=== PATIENT | female | born 1965 | race Caucasian/White ===

== ENCOUNTER 2019-08-09 15:22 | Emergency (ER) | payer OTHER ==
[2019-08-09] MEDS ORDERED: ONDANSETRON 4 MG/2 ML VIAL ONE (15:51)
[2019-08-09] MEDS ORDERED: FENTANYL CITR 100 MCG/2 ML ONE ×2 (15:51→16:40)
[2019-08-09] MEDS ORDERED: NA CHLORIDE 0.9% 1,000 ML ONE (15:51)
[2019-08-09 15:59] LABS: Protime INR 0.98
[2019-08-09 16:00] LABS: Absolute Lymphocytes (CBC) 3.9 K/uL (0.7-4.9); Basophils % 1.1 % (0-1.3); Hematocrit 39.1 % (36.0-45.0); Lymphocytes % 37.7 % (15.3-44.8); MPV 8.1 fL (7.6-11.3); RBC Red Blood Cell Count 4.38 M/uL (3.86-4.86)
[2019-08-09 16:13] LABS: Albumin 3.6 g/dL (3.4-5.0); Bilirubin Direct 0.1 mg/dL (0-0.2); Bilirubin Total 0.3 mg/dL (0.2-1.0); Potassium 3.3 mmol/L (3.5-5.1); Protein, Total 6.9 g/dL (6.4-8.2)
[2019-08-09 16:24] LABS: Troponin (Emerg Dept Use Only) 0.03 ng/mL (0.0-0.045)
[2019-08-09] MEDS ORDERED: LORazepam 2 MG/ML VIAL ONE (17:02)
[2019-08-09 17:12] LABS: Urine Blood NEGATIVE (NEG); Urine Glucose NEGATIVE (NEG); Urine Protein NEGATIVE (NEG); Urine Specific Gravity 1.005 (1.005-1.030)
--- NOTE | 2019-08-09 17:52 | RAD REPORT ---
EXAM DESCRIPTION: CT - Angio Aorta For Dissection - 08/09/2019 5:32 pm CLINICAL HISTORY: . Chest and abd pain COMPARISON: None TECHNIQUE: Computed tomography angiography of the chest, abdomen pelvis were obtained. 100 cc Isovue 370 was administered intravenously. Coronal and sagittal reconstruction were performed. MIP 3D reconstruction was performed All CT scans are performed using dose optimization technique as appropriate and may include automated exposure control or mA/KV adjustment according to patient size. FINDINGS: An aortic dissection is not seen. An aortic aneurysm is not displayed. The celiac, SMA and SANJIV are patent . The proximal left renal artery is patent. Most of the remainder of the left main renal artery is unop acified A lung consolidation is not present. A pericardial effusion is not seen. A pleural effusion is not n oted. Fatty liver Spleen, adrenals and pancreas appear unremarkable. Marked left renal cortical thinning. Left kidney is small. Nonobstructing left renal calculus is pres ent. Borderline mild right hydronephrosis. No genitourinary calculus. The appendix is normal. There no evidence diverticulitis. No ascites is noted. Spondylosis L5-S1 IMPRESSION: Negative for an aortic dissection. 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
--- NOTE | 2019-08-09 17:52 | RAD REPORT ---
EXAM DESCRIPTION: Kiera Single View08/09/2019 4:18 pm CLINICAL HISTORY: abd pain COMPARISON: 2009 FINDINGS: The lungs appear clear of acute infiltrate. The heart is normal size IMPRESSION: No acute abnormalities displayed
--- NOTE | 2019-08-09 18:25 | ER ---
Nurse's Notes [facility] Name: Blanca King Age: 54 yrs Sex: Female : 1965 Arrival Date: 08/09/2019 Time: 15:26 Bed 7 Private MD: Diagnosis: Upper abdominal pain, unspecified Presentation: 08/09 15:26 Presenting complaint: EMS states: sent here from [place], [place] for aa5 acute abdominal pain. Pt reports LUQ pain that began today at 1100. Pt reports taking hydrocodone prior to going to clinic today. Pt reports nausea, denies vomiting. 15:26 Transition of care: patient was not received from another setting of care. Onset of aa5 symptoms was August 09, 2019. Risk Assessment: Do you want to hurt yourself or someone else? Patient reports no desire to harm self or others. Initial Sepsis Screen: Does the patient meet any 2 criteria? No. Patient's initial sepsis screen is negative. Does the patient have a suspected source of infection? No. Patient's initial sepsis screen is negative. Care prior to arrival: IV initiated. 22 GA, in the right antecubital area. 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 - Hysterectomy aa5 Historical: - Allergies: 15:28 Ambien; aa5 15:28 Lisinopril; aa5 15:28 Lunesta; aa5 15:28 PENICILLINS; aa5 15:28 Sulfa (Sulfonamide Antibiotics); aa5 15:28 Ultram; aa5 15:28 Wellbutrin; aa5 15:28 Zyban; aa5 15:28 Latex, Natural Rubber; aa5 15:28 Losartan; aa5 - Home Meds: 15:35 hydrocodone-acetaminophen 10-325 mg Oral tab every 4 hours for Pain [Active]; aa5 amlodipine 10 mg tab 1 tab once daily [Active]; carvedilol 12.5 mg oral tab 2 times per day [Active]; citalopram 40 mg tab once daily [Active]; clonidine HCl 0.3 mg Oral tab daily [Active]; clopidogrel 75 mg oral tab 1 tab once daily [Active]; levothyroxine 88 mcg tab once daily [Active]; lorazepam 1 mg Oral tab 3 times per day [Active]; folic acid 400 mcg Oral tab once daily [Active]; metformin 500 mg Oral tab 2 times per day [Active]; mirtazapine 45 mg Oral tab once daily [Active]; montelukast 10 mg oral tab 1 tab once daily [Active]; Nitrostat 0.4 mg SL subl [Active]; omeprazole 40 mg Oral cpDR once daily [Active]; ondansetron HCl 4 mg Oral tab every 6 hrs [Active]; potassium chloride 20 mEq Oral TbTQ 1 tab once daily [Active]; rosuvastatin 20 mg oral tab once daily [Active]; Symbicort 80-4.5 mcg/actuation inhalation HFAA 2 puffs 2 times per day [Active]; tizanidine 4 mg oral tab every 8 hours [Active]; valacyclovir 500 mg Oral tab once daily [Active]; Zetia 10 mg Oral tab 1 tab once daily [Active]; - PMHx: 15:28 Acid Reflux; Hypertension; Thyroid problem; Diabetes - NIDDM; CVA; Heart Arrhythmia; aa5 Psoriasis; - PSHx: 15:28 C5 C6 fusion; Hysterectomy; aa5 - Immunization history:: Adult Immunizations unknown. - Ebola Screening: : No symptoms or risks identified at this time. - Social history:: Smoking status: Patient uses tobacco products, smokes one pack cigarettes per day. Screenin:33 Abuse screen: Denies threats or abuse. Nutritional screening: No deficits noted. aa5 Tuberculosis screening: No symptoms or risk factors identified. Fall Risk None identified. Assessment: 15:26 General: Appears uncomfortable, Behavior is calm, cooperative. Pain: Complains of pain aa5 in left upper quadrant Pain does not radiate. Pain currently is 8 out of 10 on a pain scale. Quality of pain is described as stabbing, Pain began suddenly, Is continuous, Aggravated by increased activity. Neuro: Level of Consciousness is awake, alert, obeys commands, Oriented to person, place, time, situation. Cardiovascular: Heart tones S1 S2 present Pulses are 3+ in right dorsalis pedis artery and left dorsalis pedis artery Edema is absent. Rhythm is regular. Respiratory: Airway is patent Respiratory effort is even, unlabored, Respiratory pattern is regular, symmetrical, Breath sounds are clear bilaterally. GI: Abdomen is round non-distended, Bowel sounds present X 4 quads. Abd is soft and non tender X 4 quads. : No signs and/or symptoms were reported regarding the genitourinary system. EENT: No signs and/or symptoms were reported regarding the EENT system. Derm: Skin is pink, warm \T\ dry. Musculoskeletal: Range of motion: intact in all extremities. 16:30 Reassessment: Patient is alert, oriented x 3, equal unlabored respirations, skin aa5 warm/dry/pink. Patient states symptoms have not improved. MD notified. . 17:00 Reassessment: Pt appears anxious after multiple missed IV attempts for CT scan. PA was aa5 notified. . 17:30 Reassessment: Patient is alert, oriented x 3, equal unlabored respirations, skin aa5 warm/dry/pink. Patient states feeling better. Pt reports anxiety and pain have improved. . 18:30 Reassessment: Patient is alert, oriented x 3, equal unlabored respirations, skin aa5 warm/dry/pink. Patient states feeling better. Vital Signs: 15:28 BP 129 / 67; Pulse 60; Resp 16 S; Temp 97.8(TE); Pulse Ox 100% on R/A; aa5 16:30 BP 128 / 86; Pulse 65; Resp 18 S; Pulse Ox 100% on R/A; aa5 17:30 BP 130 / 85; Pulse 69; Resp 16 S; Pulse Ox 99% on R/A; aa5 18:20 BP 118 / 65; Pulse 62; Resp 16 S; Temp 98.0(TE); Pulse Ox 100% on R/A; aa5 ED Course: 15:26 Patient arrived in ED. iw 15:26 Xochilt Meza, RN is Primary Nurse. aa5 15:26 Arm band placed on Patient placed in an exam room, on a stretcher. aa5 15:26 Patient has correct armband on for positive identification. Placed in gown. Bed in low aa5 position. Call light in reach. Side rails up X2. monitoring analyst on. Pulse ox on. NIBP on. 15:28 Pierre Alcala PA is PHCP. cp 15:28 Jeff Loyola MD is Attending Physician. cp 15:30 Triage completed. aa5 15:31 EKG done, by news technical director. reviewed by Jeff Loyola MD. sm3 15:40 Maintain EMS IV. Dressing intact. Good blood return noted. Site clean \T\ dry. Gauge \T\ aa 5 site: 22 G to R AC . 15:42 Radiology exam delayed due to lab results not completed at this time. (BUN/Creatinine). kw1 15:50 Radiology exam delayed due to lab results not completed at this time. (BUN/Creatinine). vm2 16:00 Urine collected: clean catch specimen, clear, Amount Voided: 300mL. aa5 16:19 XRAY Chest (1 view) In Process Unspecified. EDMS 16:30 Missed attempt(s): 22 gauge in left antecubital area. Missed attempt by pelon Beckett RN. Bleeding controlled, band aid applied, catheter tip intact. 16:40 Missed attempt(s): 22 gauge in left forearm. Bleeding controlled, band aid applied, aa5 catheter tip intact. 16:43 Missed attempt(s): 22 gauge in left antecubital area. Bleeding controlled, band aid aa5 applied, catheter tip intact. 17:00 No provider procedures requiring assistance completed. aa5 17:17 Inserted saline lock: 22 gauge in left wrist, using aseptic technique. ,using aseptic sv technique. diffusics Flushed left with 5 ml normal saline. 17:[address] via stretcher. nj 17:33 CT Aorta for Dissection In Process Unspecified. EDMS 18:30 intact, bleeding controlled, No redness/swelling at site. Pressure dressing applied, 22 aa5 G to R AC d/c'd and 22 G to left wrist d/c'd. Administered Medications: 15:55 Drug: NS 0.9% 1000 ml Route: IV; Rate: 1 bolus; Site: right antecubital; aa5 17:20 Follow up: IV Status: Completed infusion; IV Intake: 1000ml aa5 15:55 Drug: Zofran 4 mg Route: IVP; Site: right antecubital; aa5 16:00 Follow up: Response: No adverse reaction aa5 15:57 Drug: fentaNYL (PF) 25 mcg Route: IVP; Site: right antecubital; aa5 16:30 Follow up: Response: No adverse reaction; Pain is unchanged, physician notified aa5 16:50 Drug: fentaNYL (PF) 25 mcg Route: IVP; Site: right antecubital; aa5 17:45 Follow up: Response: No adverse reaction; Pain is decreased aa5 17:16 Drug: Ativan 0.5 mg Route: IVP; Site: right antecubital; iw 17:45 Follow up: Response: No adverse reaction; Marked relief of symptoms; Anxiety decreased aa5 18:30 Drug: Potassium Effervescent Tablet 25 mEq Route: PO; aa5 18:40 Follow up: Response: No adverse reaction aa5 Intake: 17:20 IV: 1000ml; Total: 1000ml. aa5 Outcome: 18:24 Discharge ordered by MD. cp 18:30 Discharged to home via wheelchair, with family. aa5 18:30 Condition: improved 18:30 Discharge instructions given to patient, Instructed on discharge instructions, follow up and referral plans. medication usage, Demonstrated understanding of instructions, follow-up care, medications, Prescriptions given X 2. 18:40 Patient left the ED. aa5 Signatures: Dispatcher [employer] EDMS Veronica Levin RN RN sv Williams, Irene, RN RN iw Calderon, Audri, RN RN aa5 Pierre Alcala, Cachorro Roth cp, Victoria 2 Dominique Duenas 1 Cristiana Tyler 3 Corrections: (The following items were deleted from the chart) 19:19 16:30 Response: No adverse reaction; Pain is unchanged, physician notified aa5 aa5 08/10 08:03 08/09 15:26 Cardiovascular: Heart tones S1 S2 present Rhythm is regular aa5 aa5
--- NOTE | 2019-08-09 18:26 | EDPHYS ---
Physician Documentation [facility] Name: Blanca King Age: 54 yrs Sex: Female : 1965 Arrival Date: 08/09/2019 Time: 15:26 Bed 7 Private MD: ED Physician Jeff Loyola HPI: 08/09 15:45 This 54 yrs old Female presents to ER via EMS with complaints of Abdominal cp Pain. 15:45 The patient presents with abdominal pain in the left upper quadrant. cp 15:45 Onset: The symptoms/episode began/occurred suddenly, today. cp 15:45 The symptoms radiate to left back. Associated signs and symptoms: Pertinent positives: cp constipation, Pertinent negatives: anorexia, blood in stools, chest pain, diarrhea, dysuria, fever, hematuria, vomiting. 15:45 The symptoms are described as constant, stabbing. Severity of pain: in the emergency cp department the pain is a 8 / 10. 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 aa5 Historical: - Allergies: 15:28 Ambien; aa5 15:28 Lisinopril; aa5 15:28 Lunesta; aa5 15:28 PENICILLINS; aa5 15:28 Sulfa (Sulfonamide Antibiotics); aa5 15:28 Ultram; aa5 15:28 Wellbutrin; aa5 15:28 Zyban; aa5 15:28 Latex, Natural Rubber; aa5 15:28 Losartan; aa5 - Home Meds: 15:35 hydrocodone-acetaminophen 10-325 mg Oral tab every 4 hours for Pain [Active]; aa5 amlodipine 10 mg tab 1 tab once daily [Active]; carvedilol 12.5 mg oral tab 2 times per day [Active]; citalopram 40 mg tab once daily [Active]; clonidine HCl 0.3 mg Oral tab daily [Active]; clopidogrel 75 mg oral tab 1 tab once daily [Active]; levothyroxine 88 mcg tab once daily [Active]; lorazepam 1 mg Oral tab 3 times per day [Active]; folic acid 400 mcg Oral tab once daily [Active]; metformin 500 mg Oral tab 2 times per day [Active]; mirtazapine 45 mg Oral tab once daily [Active]; montelukast 10 mg oral tab 1 tab once daily [Active]; Nitrostat 0.4 mg SL subl [Active]; omeprazole 40 mg Oral cpDR once daily [Active]; ondansetron HCl 4 mg Oral tab every 6 hrs [Active]; potassium chloride 20 mEq Oral TbTQ 1 tab once daily [Active]; rosuvastatin 20 mg oral tab once daily [Active]; Symbicort 80-4.5 mcg/actuation inhalation HFAA 2 puffs 2 times per day [Active]; tizanidine 4 mg oral tab every 8 hours [Active]; valacyclovir 500 mg Oral tab once daily [Active]; Zetia 10 mg Oral tab 1 tab once daily [Active]; - PMHx: 15:28 Acid Reflux; Hypertension; Thyroid problem; Diabetes - NIDDM; CVA; Heart Arrhythmia; aa5 Psoriasis; - PSHx: 15:28 C5 C6 fusion; Hysterectomy; aa5 - Immunization history:: Adult Immunizations unknown. - Ebola Screening: : No symptoms or risks identified at this time. - Social history:: Smoking status: Patient uses tobacco products, smokes one pack cigarettes per day. ROS: 15:50 Constitutional: Negative for body aches, chills, fever, poor PO intake. cp 15:50 Eyes: Negative for injury, pain, redness, and discharge. cp 15:50 ENT: Negative for drainage from ear(s), ear pain, sore throat, difficulty swallowing, cp difficulty handling secretions. 15:50 Cardiovascular: Negative for chest pain, palpitations. 15:50 Respiratory: Negative for cough, shortness of breath, wheezing. 15:50 Abdomen/GI: Positive for abdominal pain, nausea, constipation, Negative for vomiting, diarrhea, anorexia, black/tarry stool, rectal bleeding. 15:50 : Negative for urinary symptoms. 15:50 Skin: Negative for cellulitis, rash. 15:50 Neuro: Negative for altered mental status, headache, weakness. 15:50 All other systems are negative. Exam: 16:00 Constitutional: The patient appears in no acute distress, alert, awake, cp non-diaphoretic, non-toxic, well developed, well nourished. 16:00 Head/Face: Normocephalic, atraumatic. cp 16:00 Eyes: Pupils equal round and reactive to light, extra-ocular motions intact. Lids and cp lashes normal. Conjunctiva and sclera are non-icteric and not injected. Cornea within normal limits. Periorbital areas with no swelling, redness, or edema. ENT: Nares patent. No nasal discharge, no septal abnormalities noted. Tympanic membranes are normal and external auditory canals are clear. Oropharynx with no redness, swelling, or masses, exudates, or evidence of obstruction, uvula midline. Mucous membranes moist. Chest/axilla: Normal chest wall appearance and motion. Nontender with no deformity. No lesions are appreciated. 16:00 Cardiovascular: Rate: normal, Rhythm: regular, Pulses: Pulses are 2+ in right radial artery and left radial artery. Edema: is not appreciated, JVD: is not appreciated. 16:00 Respiratory: the patient does not display signs of respiratory distress, Respirations: normal, no use of accessory muscles, no retractions, no splinting, no tachypnea, labored breathing, is not present, Breath sounds: are clear throughout, no decreased breath sounds, no stridor, no wheezing. 16:00 Abdomen/GI: Inspection: abdomen appears normal, Bowel sounds: active, all quadrants, Palpation: soft, in all quadrants, severe abdominal tenderness, in the posterior aspect of left lateral abdomen, anterior aspect of left lateral abdomen and left upper quadrant, rebound tenderness, is not appreciated, voluntary guarding, is elicited in the posterior aspect of left lateral abdomen, anterior aspect of left lateral abdomen and left upper quadrant. 16:00 Back: CVA tenderness, is noted on the left. 16:00 Skin: cellulitis, is not appreciated, no rash present. 16:00 Neuro: Orientation: to person, place \T\ time. Mentation: is normal, Motor: moves all fours, strength is normal. Vital Signs: 15:28 BP 129 / 67; Pulse 60; Resp 16 S; Temp 97.8(TE); Pulse Ox 100% on R/A; aa5 16:30 BP 128 / 86; Pulse 65; Resp 18 S; Pulse Ox 100% on R/A; aa5 17:30 BP 130 / 85; Pulse 69; Resp 16 S; Pulse Ox 99% on R/A; aa5 18:20 BP 118 / 65; Pulse 62; Resp 16 S; Temp 98.0(TE); Pulse Ox 100% on R/A; aa5 MDM: 15:41 Patient medically screened. cp 16:00 Differential diagnosis: AAA, acute coronary syndrome, bowel obstruction, gastritis, cp non-specific abd pain, pancreatitis, Pyelonephritis, Ureterolithiasis, urinary tract infection. 18:23 Data reviewed: vital signs, nurses notes, lab test result(s), EKG, radiologic studies, cp CT scan. 18:23 Test interpretation: by ED physician or midlevel provider: ECG, plain radiologic cp studies. Counseling: I had a detailed discussion with the patient and/or guardian regarding: the historical points, exam findings, and any diagnostic results supporting the discharge/admit diagnosis, lab results, radiology results, the need for outpatient follow up, a family practitioner, to return to the emergency department if symptoms worsen or persist or if there are any questions or concerns that arise at home. Response to treatment: the patient's symptoms have markedly improved after treatment, and as a result, I will discharge patient. Special discussion: Based on the patient's Hx, exam, and Dx evaluation, there is no indication for emergent surgery or inpatient Tx. It is understood by the patient/guardian that if the Sx's persist or worsen they need to return immediately for re-evaluation. 08/09 15:40 Order name: Basic Metabolic Panel; Complete Time: 16:37 cp 08/09 16:37 Interpretation: Normal except: K 3.3; GLUC 123; GFR 64. cp 08/09 15:40 Order name: CBC with Diff; Complete Time: 16:37 cp 08/09 16:38 Interpretation: Normal except: RDW 15.4. cp 08/09 15:40 Order name: LFT's; Complete Time: 16:37 cp 08/09 15:40 Order name: Magnesium; Complete Time: 16:37 cp 08/09 15:40 Order name: NT PRO-BNP; Complete Time: 16:37 cp 08/09 15:40 Order name: PT-INR; Complete Time: 16:37 cp 08/09 15:40 Order name: Troponin (emerg Dept Use Only); Complete Time: 16:37 cp 08/09 16:38 Interpretation: Reviewed. cp 08/09 15:40 Order name: XRAY Chest (1 view); Complete Time: 17:58 cp 08/09 15:40 Order name: Lipase; Complete Time: 16:37 cp 08/09 15:40 Order name: CT Aorta for Dissection; Complete Time: 17:58 cp 08/09 16:03 Order name: Urine Dipstick--Ancillary (enter results); Complete Time: 17:16 eb 08/09 17:16 Interpretation: Reviewed. cp 08/09 15:40 Order name: EKG; Complete Time: 15:42 cp 08/09 15:40 Order name: Cardiac monitoring; Complete Time: 15:47 cp 08/09 15:40 Order name: EKG - Nurse/Tech; Complete Time: 15:47 cp 08/09 15:40 Order name: IV Saline Lock; Complete Time: 15:47 cp 08/09 15:40 Order name: Labs collected and sent; Complete Time: 15:47 cp 08/09 15:40 Order name: O2 Per Protocol; Complete Time: 15:47 cp 08/09 15:40 Order name: O2 Sat Monitoring; Complete Time: 15:47 cp 08/09 16:02 Order name: Urine Dipstick-Ancillary (obtain specimen); Complete Time: 16:02 ms Administered Medications: 15:55 Drug: NS 0.9% 1000 ml Route: IV; Rate: 1 bolus; Site: right antecubital; aa5 17:20 Follow up: IV Status: Completed infusion; IV Intake: 1000ml aa5 15:55 Drug: Zofran 4 mg Route: IVP; Site: right antecubital; aa5 16:00 Follow up: Response: No adverse reaction aa5 15:57 Drug: fentaNYL (PF) 25 mcg Route: IVP; Site: right antecubital; aa5 16:30 Follow up: Response: No adverse reaction; Pain is unchanged, physician notified aa5 16:50 Drug: fentaNYL (PF) 25 mcg Route: IVP; Site: right antecubital; aa5 17:45 Follow up: Response: No adverse reaction; Pain is decreased aa5 17:16 Drug: Ativan 0.5 mg Route: IVP; Site: right antecubital; iw 17:45 Follow up: Response: No adverse reaction; Marked relief of symptoms; Anxiety decreased aa5 18:30 Drug: Potassium Effervescent Tablet 25 mEq Route: PO; aa5 18:40 Follow up: Response: No adverse reaction aa5 Disposition: 08/09/19 18:24 Discharged to Home. Impression: Upper abdominal pain, unspecified. - Condition is Stable. - Discharge Instructions: Abdominal Pain, Adult, Constipation, Adult. - Prescriptions for docusate sodium 100 mg Oral capsule - take 1 capsule by ORAL route once daily may increase to twice daily as needed for constipation; 30 capsule. Zofran 4 mg Oral Tablet - take 1 tablet by ORAL route every 12 hours As needed; 20 tablet. - Medication Reconciliation Form, Thank You Letter, Antibiotic Education, Prescription Opioid Use form. - Follow up: Private Physician; When: 2 - 3 days; Reason: Recheck today's complaints. - Problem is new. - Symptoms have improved. Addendum: 08/12/2019 08:25 Co-signature as Attending Physician, Jeff Loyola MD I agree with the assessment and k dr plan of care. Signatures: Dispatcher [employer] EDMS Jeff Loyola MD MD kdr Meli Powell RN RN Ann Tolentino ms, Audri RN RN aa5 Pierre Alcala, JONATHAN PA cp Corrections: (The following items were deleted from the chart) 08/09 18:15 18:14 Fluid Challenge ordered. cp cp 18:40 18:24 08/09/2019 18:24 Discharged to Home. Impression: Upper abdominal pain, aa5 unspecified. Condition is Stable. Forms are Medication Reconciliation Form, Thank You Letter, Antibiotic Education, Prescription Opioid Use. Follow up: Private Physician; When: 2 - 3 days; Reason: Recheck today's complaints. Problem is new. Symptoms have improved. cp 08/10 17:11 08/09 15:45 The symptoms are described as constant, cp cp
[2019-08-09] MEDS ORDERED: POTASSIUM 25 MEQ EFFERV TAB ONE (18:32)
[2019-08-09 18:44] VITALS: BP 129/67; TEMP 97.8; O2SAT 100
--- NOTE | 2019-08-10 12:31 | EKG ---
Test Date: 2019-08-09 Test Time: 15:23:03 Pneumatic Tube Repairer: LORELEI MEASUREMENT RESULTS: Intervals: Rate: 55 CT: 170 QRSD: 88 QT: 478 QTc: 457 [place]: P: 60 CT: 170 QRS: 57 T: 92 INTERPRETIVE STATEMENTS: Sinus bradycardia Otherwise normal ECG Compared to ECG 01/12/2010 06:17:29 Sinus tachycardia no longer present Electronically Signed On 08-10-19 12:29:22 CDT by Leroy Cazares
== END 2019-08-09 18:40 | disposition home or self-care (01) ==
LOC: ER 15:22
DX: R10.12 Left upper quadrant pain (principal); I10 Essential (primary) hypertension; E11.9 Type 2 diabetes mellitus without complications; E07.9 Disorder of thyroid, unspecified; Z86.73 Personal history of transient ischemic attack (TIA), and cerebral infarction without residual deficits; Z88.0 Allergy status to penicillin; Z88.2 Allergy status to sulfonamides; Z88.8 Allergy status to other drugs, medicaments and biological substances; Z91.040 Latex allergy status; Z91.048 Other nonmedicinal substance allergy status
CPT/HCPCS: 96361; 93005; 85025; 80048; 36415; 83735; 85610; 80076; 81003; 84484; 83690; 83880; 71275; 74175; 71045; 96375; 96374; 99285; Q9967; J3010 ×2; J7030; J2405

== ENCOUNTER 2020-02-11 18:25 | Emergency (ER) | payer OTHER ==
--- OUTSIDE RECORDS SUMMARY | 2020-02-11 18:27 | XMS REPORT ---
:1965 Author Organization [facility] t Address [address] Saleem. [address] [place] [id number] Care Team Providers Name Role Phone MAILE SERRANO Primary Care Provider MAILE Unavailable Unavailable Payers Payer Name Policy Type Policy Number Effective Date Expiration D ate [facility] [id number] 2013 00:00:0 0 [employer] [id number] 2012 00:00:00 Problems This patient has no known problems. Allergies, Adverse Reactions, Alerts Allergy Name Allergy Status Severity Reaction(s) Onset Inactive Treat ing Comments Type Date Date Clinician bupropion Allergy to Active Unknown 2018-0 HCl Substance 5-14 00:00: 00 tramadol HCl Allergy to Active Unknown 2018-0 Substance 5-14 00:00: 00 atorvastatin Propensity Active Unknown MAKES HER 2018-0 calcium to adverse LEGS HURT 5-14 reactions 00:00: 00 Penicillin Allergy to Active Unknown 2017- Substance 5-14 00:00: 00 Sulfa Allergy to Active Unknown 2017-0 (Sulfonamide Substance 5-14 Antibiotics) 00:00: 00 Medications Ordered Filled Start Stop Current Ordering Indication Dosage Frequency Signature Comments Components Medication Medication Date Date Medication? Clinician (SIG) Name Name Amlodipine Amlodipine Yes 5 Daily Besylate 5 Besylate 5 Mg Tablet Mg Tablet Carvedilol Carvedilol Yes 3.125 Every 8 (Coreg) (Coreg) Hours 3.125 Mg 3.125 Mg Tab Tab Celecoxib Celecoxib Yes 100 Twice A (Celebrex*) (Celebrex*) Day 100 Mg 100 Mg Capsule Capsule Clonidine Clonidine Yes .3 Every 8 Hcl 0.3 Mg Hcl 0.3 Mg Hours Tablet Tablet Clopidogrel Clopidogrel Yes 75 Daily Bisulfate Bisulfate (Plavix) 75 (Plavix) 75 Mg Tablet Mg Tablet Cyclobenzap Cyclobenzap Yes Unknown rine Hcl rine Hcl Dose (Flexeril) (Flexeril) 5 Mg Tablet 5 Mg Tablet Duloxetine Duloxetine Yes 60 Daily Hcl Hcl (Cymbalta) (Cymbalta) 60 Mg 60 Mg Capsule. Capsule. Famotidine Famotidine Yes 20 Daily (Pepcid) 20 (Pepcid) 20 Mg Tablet Mg Tablet Fesoterodin Fesoterodin Yes 4 Daily e Fumarate e Fumarate (Toviaz) 4 (Toviaz) 4 Mg Mg Tab.er.24h Tab.er.24h Folic Acid Folic Acid Yes 1 Daily 1 Mg Tablet 1 Mg Tablet Hydrocodone Hydrocodone Yes 1 Bit/Acetami Bit/Acetami nophen nophen (Camden (Camden 10-325 10-325 Tablet) 1 Tablet) 1 Each Tablet Each Tablet Ibuprofen Ibuprofen Yes 400 As Needed 200 Mg 200 Mg Capsule Capsule Levothyroxi Levothyroxi Yes 100 Daily ne Sodium ne Sodium 100 Mcg 100 Mcg Tablet Tablet Mirtazapine Mirtazapine Yes 30 Bedtime (Remeron) (Remeron) 30 Mg 30 Mg Tab.rapdis Tab.rapdis Montelukast Montelukast Yes 10 Bedtime Sodium Sodium (Singulair) (Singulair) 10 Mg 10 Mg Tablet Tablet Valacyclovi Valacyclovi Yes 500 Daily r Hcl r Hcl (Valtrex) (Valtrex) 500 Mg Tab 500 Mg Tab Estrogens, Estrogens, 2018- No .45 Daily Conjugated Conjugated 05-19 (Premarin) (Premarin) 00:00 0.45 Mg 0.45 Mg :00 Tablet, Tablet, 0.45 Mg 0.45 Mg Oral Oral Omeprazole Omeprazole 20 Daily 20 Mg 20 Mg 03-03 Capsule., Capsule., 00:00 20 Mg Oral 20 Mg Oral :00 Atorvastati Atorvastati No 20 Daily n Calcium n Calcium 06-06 20 Mg 20 Mg 00:00 Tablet, 20 Tablet, 20 :00 Mg Oral Mg Oral Procedures and Interventions Procedure Date / Time Performed Performing Clinici an Magnetic resonance angiography of head 2018-03-02 00:00:00 H JAMES ROCHA without contrast Magnetic resonance imaging of cervical 2018-03-01 00:00:00 B IRIS SANDOVAL spine without contrast Magnetic resonance imaging of lumbar spine 2018-03-01 00:00: 00 IRIS GR without contrast X-ray of chest, two views 2018-02-28 00:00:00 MARCO A GR S Magnetic resonance imaging of brain 2018-02-27 00:00:00 HALI DELVALLE without contrast Computed tomography of brain without 2018-02-26 00:00:00 JEANNE TRAN V radiopaque contrast Encounters Start End Encounter Admission Attending Care Care Encounter Date/Time Date/Time Type Type Clinicians Facility Department ID 2018-02-26 2018-03-[address] [facility] [id number] 22:13:00 13:25:00 Inpatient IRIS 91 Results Test Description Test Time Test Comments Text Results Atomic Results Result Comments Sodium Level 2018-03-03 08:02:00 Test Item Value Reference Range Comments Sodium Level (test code = 2951-2) 143 136-145 Potassium Tnuil6516-27-38 08:02:00 Test Item Value Reference Range Comments Potassium Level (test code = 2823-3) 3.5 3.5-5.1 Chloride Boymw8260-18-24 08:02:00 Test Item Value Reference Range Comments Chloride Level (test code = 2075-0) 109 98-107 Carbon Dioxide Ksdnm7639-85-69 08:02:00 Test Item Value Reference Range Comments Carbon Dioxide Level (test code = 2028-9) 25 22-29 Anion Pnk9440-74-34 08:02:00 Test Item Value Reference Range Comments Anion Gap (test code = 68035-4) 12.5 8-16 Blood Urea Tvwcrtfu0263-21-77 08:02:00 Test Item Value Reference Range Comments Blood Urea Nitrogen (test code = 3094-0) 15 7-26 Glendtydfo4118-61-77 08:02:00 Test Item Value Reference Range Comments Creatinine (test code = 2160-0) 0.70 0.57-1.11 BUN/Creatinine Jbkws7481-99-71 08:02:00 Test Item Value Reference Range Comments BUN/Creatinine Ratio (test code = 3097-3) 21 6-25 Estimat Glomerular Filtration Ngmn0152-39-48 08:02:00 Test Item Value Reference Range Comments Estimat Glomerular Filtration Rate (test code = 60- >60 22230-3) Ranges were taken from the National Kidney Disease Education Program and the National Kidney Foundation literature.Reference ranges:60 or greater: Jgbrid29- 59 (for 3 consecutive months): Chronic kidneydisease 15 or less: Kidney failure Glucose Zttdx5391-26-68 08:02:00 Test Item Value Reference Range Comments Glucose Level (test code = VGN9962) 127 74-118 Calcium Dvoqm5190-25-81 08:02:00 Test Item Value Reference Range Comments Calcium Level (test code = 68842-5) 9.2 8.4-10.2 Blood Umsjrlu0308-06-26 16:01:00 Test Item Value Reference Range Comments Blood Culture (test code = 29104306) NO GROWTH AFTER 48 HOURS Total Wqxuyvoke7474-57-38 07:24:00 Test Item Value Reference Range Comments Total Bilirubin (test code = 1975-2) 0.3 0.2-1.2 Aspartate Amino Transf (AST/SGOT)2018-03-02 07:24:00 Test Item Value Reference Range Comments Aspartate Amino Transf (AST/SGOT) (test code = 15 5 -34 Aspartate Amino Transf (AST/SGOT)) Alanine Aminotransferase (ALT/SGPT)2018-03-02 07:24:00 Test Item Value Reference Range Comments Alanine Aminotransferase (ALT/SGPT) (test code = 20 0-55 1742-6) Total Qublugk9228-06-30 07:24:00 Test Item Value Reference Range Comments Total Protein (test code = 2885-2) 6.4 6.5-8.1 Bdvkori8497-71-64 07:24:00 Test Item Value Reference Range Comments Albumin (test code = 1751-7) 3.6 3.5-5.0 Mtxgztwu1721-79-41 07:24:00 Test Item Value Reference Range Comments Globulin (test code = 91265-0) 2.8 2.3-3.5 Albumin/Globulin Jlkyf2782-00-64 07:24:00 Test Item Value Reference Range Comments Albumin/Globulin Ratio (test code = 1759-0) 1.3 0.8- 2.0 Alkaline Bkevzxlzggg6900-75-90 07:24:00 Test Item Value Reference Range Comments Alkaline Phosphatase (test code = 6768-6) 79 40-150 Erythrocyte Sedimentation Kstt1714-01-10 10:13:00 Test Item Value Reference Range Comments Erythrocyte Sedimentation Rate (test code = 4537-7) 14 0-20 Magnesium Vxjwz2199-33-83 08:18:00 Test Item Value Reference Range Comments Magnesium Level (test code = 61545-9) 2.2 1.3-2.1 White Blood Doidg8453-82-86 06:55:00 Test Item Value Reference Range Comments White Blood Count (test code = 6690-2) 8.77 4.8-10.8 Red Blood Rpowu2627-64-30 06:55:00 Test Item Value Reference Range Comments Red Blood Count (test code = 789-8) 4.37 3.6-5.1 Yvmjljwhjt8102-70-05 06:55:00 Test Item Value Reference Range Comments Hemoglobin (test code = 45584-7) 12.8 12.0-16.0 Gyrzdercya7222-21-49 06:55:00 Test Item Value Reference Range Comments Hematocrit (test code = 4544-3) 37.7 34.2-44.1 Mean Corpuscular Jrbsec4470-09-59 06:55:00 Test Item Value Reference Range Comments Mean Corpuscular Volume (test code = 787-2) 86.3 81-9 9 Mean Corpuscular Bhpqpjkngq6894-95-02 06:55:00 Test Item Value Reference Range Comments Mean Corpuscular Hemoglobin (test code = 785-6) 29.3 28-32 Mean Corpuscular Hemoglobin Tetdhxl7456-39-77 06:55:00 Test Item Value Reference Range Comments Mean Corpuscular Hemoglobin Concent (test code = 34.0 31-35 786-4) Red Cell Distribution Wjfwq5234-01-33 06:55:00 Test Item Value Reference Range Comments Red Cell Distribution Width (test code = 12491-2) 14.6 11.7-14.4 Platelet Qcbka4622-88-86 06:55:00 Test Item Value Reference Range Comments Platelet Count (test code = 777-3) 229 140-360 Neutrophils (%) (Auto)2018-03-01 06:55:00 Test Item Value Reference Range Comments Neutrophils (%) (Auto) (test code = 17605-0) 59.0 38. 7-80.0 Lymphocytes (%) (Auto)2018-03-01 06:55:00 Test Item Value Reference Range Comments Lymphocytes (%) (Auto) (test code = 736-9) 29.9 18.0- 39.1 Monocytes (%) (Auto)2018-03-01 06:55:00 Test Item Value Reference Range Comments Monocytes (%) (Auto) (test code = 5905-5) 9.8 4.4-11 .3 Eosinophils (%) (Auto)2018-03-01 06:55:00 Test Item Value Reference Range Comments Eosinophils (%) (Auto) (test code = 713-8) 0.8 0.0-6 .0 Basophils (%) (Auto)2018-03-01 06:55:00 Test Item Value Reference Range Comments Basophils (%) (Auto) (test code = 706-2) 0.2 0.0-1.0 IM GRANULOCYTES %2018-03-01 06:55:00 Test Item Value Reference Range Comments IM GRANULOCYTES % (test code = IM GRANULOCYTES %) 0.3 0.0-1.0 Neutrophils # (Auto)2018-03-01 06:55:00 Test Item Value Reference Range Comments Neutrophils # (Auto) (test code = 751-8) 5.2 2.1-6.9 Lymphocytes # (Auto)2018-03-01 06:55:00 Test Item Value Reference Range Comments Lymphocytes # (Auto) (test code = 41298-9) 2.6 1.0-3 .2 Monocytes # (Auto)2018-03-01 06:55:00 Test Item Value Reference Range Comments Monocytes # (Auto) (test code = 742-7) 0.9 0.2-0.8 Eosinophils # (Auto)2018-03-01 06:55:00 Test Item Value Reference Range Comments Eosinophils # (Auto) (test code = 711-2) 0.1 0.0-0.4 Basophils # (Auto)2018-03-01 06:55:00 Test Item Value Reference Range Comments Basophils # (Auto) (test code = 704-7) 0.0 0.0-0.1 Absolute Immature Granulocyte (orzc8388-91-43 06:55:00 Test Item Value Reference Range Comments Absolute Immature Granulocyte (auto (test code = 0.03 0-0.1 Absolute Immature Granulocyte (auto) Urine [id number] 14:24:00 Test Item Value Reference Range Comments Urine WBC (test code = 5821-4) NONE 0-5 Urine CCU8610-67-14 14:24:00 Test Item Value Reference Range Comments Urine RBC (test code = 93807-3) 0-5 0-5 Urine Wdjpjrox9357-82-29 14:24:00 Test Item Value Reference Range Comments Urine Bacteria (test code = 14877-2) RARE NONE Urine Epithelial Dqrbe4539-44-42 14:24:00 Test Item Value Reference Range Comments Urine Epithelial Cells (test code = 41089-9) RARE NON E Urine Coarse Granular Vqeuy9458-59-92 14:24:00 Test Item Value Reference Range Comments Urine Coarse Granular Casts (test code = 03690-3) 6-10 >0 Urine Mglhb2908-75-88 14:14:00 Test Item Value Reference Range Comments Urine Color (test code = 5778-6) YELLOW YELLOW Urine Utnhmsp8565-15-96 14:14:00 Test Item Value Reference Range Comments Urine Clarity (test code = 69196-3) SL CLOUDY CLEAR Urine Specific Oxyizpj3715-84-91 14:14:00 Test Item Value Reference Range Comments Urine Specific Moro (test code = 5811-5) 1.030 1.01 0-1.025 Urine nH2039-33-87 14:14:00 Test Item Value Reference Range Comments Urine pH (test code = 63689-7) 5 5-7 Urine Leukocyte Plfjrhjk4032-33-63 14:14:00 Test Item Value Reference Range Comments Urine Leukocyte Esterase (test code = 5799-2) NEGATIVE NE GATIVE Urine Mijiyes5053-78-21 14:14:00 Test Item Value Reference Range Comments Urine Nitrite (test code = 66078-9) NEGATIVE NEGATIVE Urine Pvvpdcs3351-51-69 14:14:00 Test Item Value Reference Range Comments Urine Protein (test code = 5804-0) 2+ NEGATIVE Urine Glucose (UA)2018-02-28 14:14:00 Test Item Value Reference Range Comments Urine Glucose (UA) (test code = 2349-9) NEGATIVE NEGATIVE Urine Miuhhrh8455-49-40 14:14:00 Test Item Value Reference Range Comments Urine Ketones (test code = 81648-9) 3+ NEGATIVE Urine Zcpkbyxsahwg9281-11-09 14:14:00 Test Item Value Reference Range Comments Urine Urobilinogen (test code = 70169-8) 0.2 0.2-1 Urine Zzxucveet6872-23-05 14:14:00 Test Item Value Reference Range Comments Urine Bilirubin (test code = 1978-6) 2+ NEGATIVE Urine Kypzy7618-64-98 14:14:00 Test Item Value Reference Range Comments Urine Blood (test code = 72149-4) 2+ NEGATIVE Urine Opiates Ayvuxc0639-82-00 08:04:00 Test Item Value Reference Range Comments Urine Opiates Screen (test code = 14270-1) POSITIVE NEGAT LIZETTE This test provides only a screen. Positive results should be repeated by a confirmatory test.Urine Barbiturates Eggnxn9361-00-17 08:04:00 Test Item Value Reference Range Comments Urine Barbiturates Screen (test code = 719795216) NEGATIVE NEGATIVE Urine Phencyclidine Jpzwyw6087-29-79 08:04:00 Test Item Value Reference Range Comments Urine Phencyclidine Screen (test code = 34946-9) NEGATIVE NEGATIVE Urine Amphetamines Rwnutx1108-69-94 08:04:00 Test Item Value Reference Range Comments Urine Amphetamines Screen (test code = 89567-9) NEGATIVE NEGATIVE Urine Methamphetamines Mvydlt5089-86-11 08:04:00 Test Item Value Reference Range Comments Urine Methamphetamines Screen (test code = Urine NEGATIVE NEGATIVE Methamphetamines Screen) Urine Benzodiazepines Qourfh8120-44-22 08:04:00 Test Item Value Reference Range Comments Urine Benzodiazepines Screen (test code = 31541-0) NEGATIVE NEGATIVE Urine Cocaine Vfxdty3066-76-06 08:04:00 Test Item Value Reference Range Comments Urine Cocaine Screen (test code = 3398-5) NEGATIVE NEGATI VE Urine Cannabinoids Sngprq1461-86-00 08:04:00 Test Item Value Reference Range Comments Urine Cannabinoids Screen (test code = 35228-0) POSITIVE NEGATIVE This test provides only a screen. Positive results should be repeated by a confirmatory test.Urine Methadone Fkdmmr2519-13-67 08:04:00 Test Item Value Reference Range Comments Urine Methadone Screen (test code = 65235-8) NEGATIVE NEG ATIVE THESE RESULTS ARE FOR MEDICAL TREATMENT ONLYTHIS REPORT CONTAINS UNCONFIRMED SCREENING RESULTS*POSITIVE RESULTS WILL BE CONFIRMED BY REFERENCE LAB UPON REQUEST CUT-OFFDRUG CLASS CONCENTRATION ng/mLAmphetamines 1000Met hamphetamines 1000Cocaine Metabolite 300Opiate 300Phencyclidine 25Cannabinoid 50Barbiturates 300Benzodiazepine 300Methadone 300B-Type Natriuretic Rwkkjva9055-46-00 07:33:00 Test Item Value Reference Range Comments B-Type Natriuretic Peptide (test code = 57741-6) 62.7 0-100 Rapid Plasma Fkgcyp1212-87-94 06:58:00 Test Item Value Reference Range Comments Rapid Plasma Reagin (test code = 44479-5) Non Reactive Non Re active Performed at: - [facility] [id number] Director: Syd Chambers MD, Phone: [phone] A1c Pvnrhko3871-37-13 14:28:00 Test Item Value Reference Range Comments Hemoglobin A1c Percent (test code = Hemoglobin A1c 5.8 4.0-7.0 Percent) Thyroid Stimulating Hormone (TSH)2018-02-27 11:37:00 Test Item Value Reference Range Comments Thyroid Stimulating Hormone (TSH) (test code = 0.402 0 .350-4.940 79877-9) Triglycerides Yeote8814-53-42 11:18:00 Test Item Value Reference Range Comments Triglycerides Level (test code = 2571-8) 136 0-149 Cholesterol Erime6611-31-40 11:18:00 Test Item Value Reference Range Comments Cholesterol Level (test code = 2093-3) 113 0-199 Less than 200 mg/dL Low Fohl894 - 239 mg/dL Borderline Jtpu477 mg/dl and greaterHigh RiskLDL Gdarebstxml1628-37-98 11:18:00 Test Item Value Reference Range Comments LDL Cholesterol (test code = 2089-1) 52 60-130 HDL Kjkhvcwtpfn4379-04-08 11:18:00 Test Item Value Reference Range Comments HDL Cholesterol (test code = 2085-9) 34 40-60 Cholesterol/HDL Nwnsl7949-51-77 11:18:00 Test Item Value Reference Range Comments Cholesterol/HDL Ratio (test code = 9830-1) 3.3 3.0-3 .6 Bedside Jlpqhmm9699-85-85 21:19:00 Test Item Value Reference Range Comments Bedside Glucose (test code = 82735-5) 106 70-120 Meter ID: [id number] Kmcl2427-31-45 19:45:00 Test Item Value Reference Range Comments Prothrombin Time (test code = 5902-2) 12.2 11.9-14.5 Prothromb Time International Nvewf7472-75-89 19:45:00 Test Item Value Reference Range Comments Prothromb Time International Ratio (test code = 0.98 6301-6) Oral Anticoagulant Therapy INR Values:1. Low Intensity Therapy 1.5 - 2.02. Moderate IntensityTherapy 2.0 - 3.03. High Intensity Therapy(1) 2.5 - 3.54. High Intensity Therapy(2) 3.0 - 4.05. Panic Value INR > 5.0Activated Partial Thromboplast Dzhf1897-14-06 19:45:00 Test Item Value Reference Range Comments Activated Partial Thromboplast Time (test code = 28.5 23.8-35.5 68221-5) [facility] HEAD [place] [address] Patient Name: [facility] MR #: [id number] : 1965 Age/Sex: 52/F Req #: [id number] Adm Physician: IRIS GR MD Ordered by: JAMES LAZO MD Rep ort #: [id number] Location: MED/SURG Room/Bed: [facility] Procedure: [id number] MRI/MRA HEAD WO Exam Date: Exam Time: REPORT STATUS: Signed History: Acute ischemic stroke Comparison studies: Head CT on 02/26/2018 Brain MRI on 02/27/2018 Technique: 3-D autk-ks-lysrpr intracranial. Contrast: None Findings: Internal carotid arteries:No flow abnormalities. Vertebral arteries: No flow abnormalities in the visualized intracranial segments. Basilar artery: No flow abnormalities. Posterior cerebral arteries: No flow abnormalities. Anatomical variants: Acom: Visualized. Pcoms: Right patent. The P1 segmentof the right [employer]PER[employer]ING [employer]OR is mildly hypoplastic. Left not visualized. Vertebral arteries: Right dominant IMPRESSION: No abnormalities . Signed by: Dr. Paulo Heredia M.D. on 03/02/2018 5:02 PM Dictated By: PAULO NGUYEN MD, MD 01 Transcribed By: WALE on 03/02/181701 COPY TO: [facility] [place] [address] Patient Name: [facility] MR #: [id number] : 1965 Age/Sex: 52/F Req #: [id number] Adm Physician: IRIS GR MD Ordered by: IRIS GR MD Re port #: [id number] Location: MED/SURG Room/Bed: [facility] Procedure: 7 MRI/MRI SPINE LUMBAR WO Exam Date: Exam Time: REPORT STATUS: Signed Exam: Lumbarspine MRI without IV contrast History: Arm and leg weakness Comparison studies: None Technique: Sagittal and axial T2 , sagittal T1 and IR, axial spin density oblique and coronal T2. Intravenous contrast: None Findings: Number of lumbar vertebral bodies: 5. Alignment: Normal lordosis. No scoliosis. Soft tissues: No T2 hyperintense inflammatory changes. Paraspinal muscles: Mild symmetric atrophy. Lower thoracic cord: Normal in signal and morphology. Th e tip of the conus is at L2 . Cauda equina: No masses. No arachnoiditis. Vertebrae: No compression fractures, infection or neoplasm. Degenerative changes: Mild loss of T2/STIRdisc signal from T10 through L3 and L5-S1. L1-L2: Patent canal and foramina. L2-L3: Mild loss of disc height and loss of T2/STIR disc signal. Mild symmetric bulging disc which does notresult in canal stenosis. Patent foramina. L3-L4: No abnormalities L4-L5: Mild symmetric bulging disc and mild right facet arthrosis without associated canal or foraminal stenosis. L5-S1: Moderate loss of disc height and loss of T2 disc signal. Symmetric disc bulge and facet arthrosis with mild to moderate bilateral foraminal stenosis. Additional findings: Multiple small T2 hyperintense lesions in the right kidney are most likely cysts. The left kidney is atrophic and contains a few small T2 hyperintense lesions which may also be cysts. IMPRESSION:1. Moderately degenerated disc with mild to moderate bilateral foraminal stenosis at L5-S1. No canal stenosis or significant foraminal stenosis at the remaining lumbar levels. 2. Incidental atrophic left kidney with bilateral renal cysts. Signed by: Dr. Geovanni Sweeney M.D. on 03/02/20187:00 AM Dictated By: GEOVANNI SWEENEY MD 9 Transcribed By: WALE on 03/02/18699 COPY TO: IRIS GRRI SPINE CERVICAL WO [place] [address] Patient Name: [facility] MR #: [id number] : 1965 Age/Sex: 52/F [facility] #: [id number] [facility] Physician: IRIS GR MD Ordered by: IRIS GR MD Report #: [id number] Location: MED/SURG Room/Bed: [facility] Procedure: [id number] MRI/MRI SPINE CERVICAL WO Exam Date: Exam Time: REPORT STATUS: Signed Exam: Cervical spine MRI without IV contrast History: Arm and leg weakness Comparison studies: None Linda hnique: Sagittal T1, T2 and IR, axial T2 and axial gradient echo Intravenous contrast: None Findings: Alignment: Normal lordosis. No scoliosis. Cervicomedullary junction: No abnormalities. Patent foramen magnum. Soft tissues: No T2 hyperintense inflammatory changes. Spinal cord: Normal in size and signal from the foramen magnum through T1. Vertebrae: No fractures, infection or neoplasm. Postsurgical changes: Anterior cervical discectomy and fusion (ACDF) at C5-C6 with anterior plate fixated via anterior vertebral body screws and solid interbody fusion. Probable discectomy changes at C6-C7 with susceptibility artifact related related to metallic hardware/possible cage prosthesis which extends from the disc space to the superior C7 endplate. Hardware cannot be further evaluated by MRI and could better be evaluated by conventional cervical spine x-ray or cervical spine CT as warranted. Degenerative changes: C2-C3: Patent canal and forami na. C3-C4: Mildly degenerated disc. Mild canal stenosis due to a disc osteophyte complex with small central disc protrusion. Moderate bilateral foraminal stenosis due to uncovertebral and facet arthrosis. C4-C5: Moderately degenerated disc adjacent to the fused level. Mild canal stenosis due to a disc osteophyte complex. Moderate bilateral foraminal stenosis due to uncovertebralarthrosis. C5-C6: Surgical level. Patent canal and foramina. C6-C7: Moderate loss of disc height. Residual disc osteophyte complex and mildly thickened ligamentum flavum result in mild canal stenosis. Moderate bilateral foraminal stenosis due to uncovertebral arthrosis. Patent canal and foramina. C7-T1: Right facet arthrosis. Patent canal and foramina. Incidental findings: Nonspecific T2 hyperintense reactive changes in the right mastoids. A T2 hyperintense cyst ornodule in the right thyroid lobe measures 0.8 cm. IMPRESSION: 1. No cervical cord signalabnormalities. 2. Surgical changes of C5-C6 anterior fusion and presumed discectomy at C6-C7. 3. Mildly degenerated disc at C3-C4. Moderately degenerated disc at C4-C5 and moderate decreased disc space at C6-C7. 4. Mild degenerative canal stenosis with moderate bilateral degenerative foraminal stenosis at C3-C4, C4- C5 and at C6-C7. Signed by: Dr. Geovanni Sweeney M.D. on 03/02/2018 7:26 AM Dictated By: GEOVANNI SWEENEY MD 5 COPY [facility]: [facility] [place] [address] Patient Name: [facility] MR #: [id number] : 1965 Age/Sex: 52/F Req #: [id number] Adm Physician: IRIS GR MD Ordered by: IRIS GR MD Report #: [id number] Location: MED/SURG Room/Bed: [facility] Procedure: [id number] DX/CHEST 2 VIEWS Exam Date: Exam Time: REPORT STATUS: Signed PROCEDURE: Frontal and lateral views of the chest. COMPARISON: None. INDICATIONS: shortness of breath, chest pain FINDINGS: Lines/tubes: None. Lungs: The lungs are well inflated and clear. There is no evidence of pneumonia or pulmonary edema. Pleura: There is no pleural effusion or pneumothorax. Heart and mediastinum: The heart and the mediastinum are normal. Bones: No acute bony abnormality. IMPRESSION: No acute cardiopulmonary disease. Dictated by: Abhay Dinh M.D. on 02/28/2018 at 15:36 Electronically approved by: Abhay Dinh M.D. on 02/28/2018 at 15:36 Dictated By: ABHAY DINH MD 153 Transcribed By: LIDA on 02/28/18 1536 COPY TO: IRIS GR [place] [address] Patient Name: [facility] MR #: [id number] : 1965 Age/Sex: 52/F Req #: [id number] Adm Physician: IRIS GR MD Ordered by: HALI SARAVIA M.D. Report #: [id number] Location: ICU Room/Bed: ICU [facility] Procedure: [id number] MRI/MRI BRAINWO Exam Date: Exam Time: REPORT STATUS: Signed EXAMINATION: MRI of the brain without contrast. HISTORY: Acute ischemic stroke, status post TPA COMPARISON: None. TECHNIQUE: Sagittal T2; axial DWI, T2, FLAIR, T1-IR, T2 gradient echo; coronal FLAIR.IMAGE QUALITY: Adequate. FINDINGS: Parenchyma: 1. A few scattered white matter hyperintense foci, most likely nonspecific chronic medical changes mostly in the bilateral frontal lobes 2. No mass, hemorrhage, acute or chronic infarcts. Skull: Unremarkable. Vessels: Expected flow voids present in the major arteries and dural sinuses. Extra-axial spaces: No abnormal signal intensity or mass effect. Brain volume: Within normal limits for age. Ventricles: No hydrocephalus or displacement. Foramen magnum: Unremarkable. Sella: Unremarkable. Paranasal / mastoid sinuses: Partial opacification of the right mastoid air cells, likely minimal effusion, otherwise clear. IMPRESSION: 1. No acute infarcts seen at this time. No intracranial hemorrhage. 2. Unchanged minimal chronic microvascular ischemic changes compared to head CT on 02/26/2018. Signed by: Dr. Rene Witt M.D. on 02/27/2018 7:59 PM Dictated By: RENE WITT MD 58 Transcribed By: WALE on 02/27/181958 COPY TO: HALI SARAVIA M.D.CHEST SINGLE (PORTABLE) [place] [address] Patient Name: [facility] MR #: [id number] : 1965 Age/Sex: 52/F Req #: [id number] Adm Physician: Ordered by: JEANNE WORTHY MD Report #: [id number] Location: ER Room/Bed: Procedure: [id number] DX/CHEST SINGLE (PORTABLE) Exam Date: 02/26/18 Exam Time: 1814 REPORT STATUS: Signed PROCEDURE: CHEST SINGLE (PORTABLE) COMPARISON: None. INDICATIONS: altered mental status FINDINGS: LUNGS: No significant pulmonary parenchymal abnormalities and normal vascularity. CARDIAC: Normal size cardiac silhouette. MEDIASTINUM: Normal. PLEURA: Normal. BONES: Fusion plate in the lower cervical spine is partially imaged. Visualized portions are unremarkable. OTHER: Negative. CONCLUSION: No acute cardiopulmonary process. Dictated by: Nikolai Todd M.D. on 02/26/2018 at 18:40 Electronically approved by: Nikolai Todd M.D. on 02/26/2018 at 18:40 Dictated By: NIKOLAI TODD MD 39 Transcribed By: LIDA on 02/26/181839 COPY TO: JEANNE WORTHY V MDCT BRAIN WO [place] [address] Patient Name: [facility] MR #: [id number] : 1965 Age/Sex: 52/F Req #: [id number] Adm Physician: Ordered by: JEANNE WORTHY MD Report #: [id number] Location: ER Room/Bed: Procedure: [id number] CT/CT BRAIN WO Exam Date: 02/26/18 Exam Time: 1815 REPORT STATUS: Signed History: Bilateral weakness Comparison studies: None Technique: Axial images were obtained from the skull base to the vertex. Coronal and sagittal reconstructions obtained from the axial data. Findings: Scalp/skull: No abnormalities. No fractures, blastic or lytic lesions. Extra-axial spaces: No masses. No fluid collections. Brain sulci: Appropriate for age. Ventricles: Normal in size and configuration. No hydrocephalus. Parenchyma: Few hypodensities in the supratentorial white matter are small vessel ischemic changes. No masses, hemorrhage, acute or chronic cortical vascular insults. Sellar/suprasellar region: No abnormalities. Craniocervical junction: Patent foramen magnum. No Chiari one malformation. Incidental findings: Atherosclerotic calcifications in the carotid siphons . Mild opacification of the right mastoid air cells. Impression: No acute abnormalities. Mild supratentorial white matter small vessel ischemic changes. Signedby: DR Willem Tate M.D. on 02/26/2018 7:00 PM Dictated By: WILLEM PAZ MD 99 Transcribed By: WALE on 02/26/181899 COPY TO: JEANNE WORTHY MD
--- OUTSIDE RECORDS SUMMARY | 2020-02-11 18:28 | XMS REPORT | Summary of Care ---
:1965 Author Organization [facility] Address [address] [place] [id number] Care Team Providers Name Role Phone Efren Amin Primary Care Provider Reason for Visit Reason Comments Results patient notified of MARILIA andrade Encounter Details Date Type Department Care Team Description 01/18/2020 Telephone [facility]ESS [facility] Marisela Ty, Results (patient [address] [place] RN notified of MARILIA Williamson [address] [place] [address] results) [place], [place] [address] [address] [place] [address] Allergies Active Allergy Reactions Severity Noted Date Comments Phong Inhibitors Nausea Only Medium 03/05/2014 Severe dizzin ess, severe headache s Zolpidem Tartrate Rash 01/16/2020 Atorvastatin Other - See comments Medium 03/05/2014 Leg apurva n Bupropion Hcl Other - See comments 03/05/2014 Allerg y to Zyban As well in same ca tegory as wellbutrin Gives pt seizur es Citric Acid Nausea Only, Rash Low 03/05/2014 Acid reflu x Latex Other - See comments 01/16/2020 Penicillins Rash Medium 03/05/2014 Sulfa (Sulfonamide Rash Medium 03/05/2014 Antibiotics) Tramadol Hcl Other - See comments 01/16/2020 documented as of this encounter (statuses as of 01/18/2020) Medications Medication Sig Dispensed Refills Start Date End Date Status HYDROcodone-acetaminoph Take 1 tablet by 0 Active en 10-325 mg tablet mouth. amLODIPine 10 mg tablet Take 1 tablet by 0 0 Active mouth daily. carvediloL 12.5 mg Take 1 tablet by 0 01/16/2020 Active tablet mouth 2 (two) times daily with meals. cloNIDine 0.3 mg tablet Take 1 tablet by 0 0 Active mouth 4 (four) times daily. citalopram (CELEXA) 40 Take 1 tablet by 0 01/16/2020 Active mg tablet mouth daily. clopidogreL (PLAVIX) 75 Take 1 tablet by 0 0 Active mg tablet mouth daily. levothyroxine 88 mcg Take 1 tablet by 0 01/16/2020 Active tablet mouth every morning. LORazepam 1 mg tablet Take 1 tablet by 0 01/16/2020 Active mouth 2 (two) times daily. metFORMIN 500 mg tablet Take 1 tablet by 0 0 Active mouth 2 (two) times daily with meals. mirtazapine (REMERON) Take 1 tablet by 0 01/16/2020 Active 45 mg tablet mouth at bedtime. montelukast (SINGULAIR) Take 1 tablet by 0 0 Active 10 mg tablet mouth. nitroglycerin Place 1 tablet 0 01/16/2020 Active (NITROSTAT) 0.4 mg under the tongue sublingual tablet every 5 (five) minutes as needed for Chest pain. omeprazole 40 mg Take 1 capsule 0 01/16/2020 Active capsule by mouth daily. ondansetron (ZOFRAN Take 1 tablet by 0 01/16/2020 Active ODT) 4 mg mouth every 8 disintegrating tablet (eight) hours as needed for Nausea and Vomiting (N/V). potassium chloride 20 Take 20 mEq by 0 01/16/2020 Active mEq packet mouth daily. rosuvastatin (CRESTOR) Take 1 tablet by 0 01/16/2020 Active 20 mg tablet mouth at bedtime. budesonide-formoteroL Inhale 2 Puffs 2 10.2 g 0 01/16/2020 Active 80-4.5 mcg/actuation (two) times inhaler daily. valACYclovir (VALTREX) Take 1 tablet by 0 01/16/2020 Active 500 mg tablet mouth daily. ezetimibe (ZETIA) 10 mg Take 1 tablet by 0 0 Active tablet mouth daily. oxybutynin chloride 5 Take 1 tablet by 0 01/16/2020 Active mg tablet mouth 3 (three) times daily. azithromycin 250 mg Take 1 tablet by 1 Package 0 01/17/2020 Active tabletIndications: mouth daily. Acute URI, Cough Take 500 mg day 1, then 250 mg days 2 to 5. benzonatate (TESSALON Take 1 capsule 21 capsule 0 01/17/2020 Active PERLES) 100 mg by mouth 3 capsuleIndications: (three) times Acute URI, Cough daily as needed for Cough. documented as of this encounter (statuses as of 01/18/2020) Active Problems No known active problemsdocumented as of this encounter (statuses as of 01/18/2020) Social History Tobacco Use Types Packs/Day Years Used Date Current Every Day Smoker Cigarettes 1 43 Smokeless Tobacco: Never Used Alcohol Use Drinks/Week oz/Week Comments Never Alcohol Habits Answer Date Recorded How often do you have a drink containing alcohol? Never 01/17/2020 How many drinks containing alcohol do you have on a typical Not asked day when you are drinking? How often do you have six or more drinks on one occasion? No t asked Sex Assigned at Date Recorded Not on file Job Start Date Occupation Industry Not on file Not on file Not on file Travel History Travel Start Travel End No recent travel history available. documented as of this encounter Last Filed Vital Signs Not on filedocumented in this encounter Plan of Treatment Health Maintenance Due Date Last Done Comments HEPATITIS C (HCV) SCREEN 1965 PNEUMOCOCCAL 0-64 YEARS COMBINED SERIES (1 of 1 - 1971 PPSV23) DTaP,Tdap,and Td Vaccines (1 - Tdap) 1976 PAP SMEAR 1986 Breast Cancer Screening (MAMMOGRAM) 2005 COLONOSCOPY 2015 Zoster Recombinant Vaccine (SHINGRIX) (1 of 2) 2015 INFLUENZA VACCINE (#1) 2019 documented as of this encounter Results Not on filedocumented in this encounter Insurance Payer Benefit Plan / Subscriber ID Effective Phone Address T ype Group Dates [facility] [id number] 2020-Prese Medic are Adv HEALTHCARE - HEALTHCARE DUAL nt H [place] MANAGED COMPLETE HMO MEDICARE documented as of this encounter
--- OUTSIDE RECORDS SUMMARY | 2020-02-11 18:28 | XMS REPORT | Summary of Care ---
:1965 Author Organization [facility] - [facility] Address [address] [place] [address] Care Team Providers Name Role Phone Efren Amin Primary Care Provider Reason for Visit Reason Comments Cough Headache Diarrhea Encounter Details Date Type Department Care Team Description 01/17/2020 Urgent Care [facility] Family Sigifredo Castillo MD [address] [place] [address] Acute URI (Primary Dx); Medicine - [place] [facility] Cough [address] [facility] [place] [address] Allergies Active Allergy Reactions Severity Noted Date [...] as of this encounter (statuses as of 01/19/2020) Medications Medication Sig Dispensed Refills Start Date [...] as of this encounter (statuses as of 01/19/2020) Active Problems No known active problemsdocumented as of this encounter (statuses as of 01/19/2020) Social History Tobacco Use Types Packs/Day Years [...] of this encounter Last Filed Vital Signs Vital Sign Reading Time Taken Comments Blood Pressure 109/74 01/17/2020 11:24 AM CDT Pulse 58 01/17/2020 11:24 AM CDT Temperature 36.7 C (98 F) 01/17/2020 11:24 AM CDT Respiratory Rate 19 01/17/2020 11:24 AM CDT Oxygen Saturation 97% 01/17/2020 11:24 AM CDT Inhaled Oxygen Concentration - - Weight 60.8 kg (134 lb) 01/17/2020 11:24 AM CDT Height 160 cm (5' 3") 01/17/2020 11:24 AM CDT Body Mass Index 23.74 01/17/2020 11:24 AM CDT documented in this encounter Progress Notes Charu Crouch PA - 01/17/2020 11:00 AM CDT Cc: Chief Complaint Patient presents with Cough Headache Diarrhea Blanca King is a 54 year old female. Patient presents with URI symptoms that began 2 weeks. Travel: none Known COVID19 exposure? none. Suspected COVID19 exposure? none. Sick Contacts? none Contacted PCP, Dr. Amin, who advised she be tested for COVID-19 here. URI Presenting symptoms: congestion, cough, fatigue, rhinorrhea and sore throat Presenting symptoms: no ear pain, no facial pain and no fever Duration: 2 weeks Timing: Intermittent Progression: Unchanged Chronicity: New Worsened by: Nothing Ineffective treatments: zyrtec. Associated symptoms: arthralgias, sinus pain and sneezing Associated symptoms: no headaches, no myalgias, no neck pain, no swollen glands and no wheezing Risk factors: chronic cardiac disease, chronic respiratory disease and diabetes mellitus Risk factors: not elderly, no chronic kidney disease, no immunosuppression, no recent illness, no recent travel and no sick contacts Allergies Blanca is allergic to phong inhibitors; atorvastatin; penicillins; sulfa (sulfonamide antibiotics);ambien [zolpidem tartrate]; bupropion hcl; latex; ultram [tramadol hcl]; and citric acid. Medications Outpatient Medications Prior to Visit Medication Sig Dispense Refill amLODIPine 10 mg tablet Take 1 tablet by mouth daily. budesonide-formoteroL 80-4.5 mcg/actuation inhaler Inhale 2 Puffs 2 (two) times daily. 10.2 g carvediloL 12.5 mg tablet Take 1 tablet by mouth 2 (two) times daily with meals. citalopram (CELEXA) 40 mg tablet Take 1 tablet by mouth daily. cloNIDine 0.3 mg tablet Take 1 tablet by mouth 4 (four) times daily. clopidogreL (PLAVIX) 75 mg tablet Take 1 tablet by mouth daily. ezetimibe (ZETIA) 10 mg tablet Take 1 tablet by mouth daily. HYDROcodone-acetaminophen 10-325 mg tablet Take 1 tablet by mouth. levothyroxine 88 mcg tablet Take 1 tablet by mouth every morning. LORazepam 1 mg tablet Take 1 tablet by mouth 2 (two) times daily. 0 metFORMIN 500 mg tablet Take 1 tablet by mouth 2 (two) times daily with meals. mirtazapine (REMERON) 45 mg tablet Take 1 tablet by mouth at bedtime. montelukast (SINGULAIR) 10 mg tablet Take 1 tablet by mouth. nitroglycerin (NITROSTAT) 0.[address] 1 tablet under the tongue every 5 (five) minutes as needed for Chest pain. omeprazole 40 mg capsule Take 1 capsule by mouth daily. ondansetron (ZOFRAN ODT) 4 mg disintegrating tablet Take 1 tablet by mouth every 8 (eight) hoursas needed for Nausea and Vomiting (N/V). oxybutynin chloride 5 mg tablet Take 1 tablet by mouth 3 (three) times daily. potassium chloride 20 mEq packet Take 20 mEq by mouth daily. rosuvastatin (CRESTOR) 20 mg tablet Take 1 tablet by mouth at bedtime. valACYclovir (VALTREX) 500 mg tablet Take 1 tablet by mouth daily. No facility-administered medications prior to visit. Histories Past Medical History: Diagnosis Date Anxiety Arrhythmia COPD (chronic obstructive pulmonary disease) Diabetes Hyperlipidemia Hypertension History reviewed. No pertinent surgical history. Social History Socioeconomic History Marital status: Single Spouse name: Not on file Number of children: Not on file Years of education: Not on file Highest education level: Not on file Occupational History Not on file Social Needs Financial resource strain: Not on file Food insecurity: Worry: Not on file Inability: Not on file Transportation needs: Medical: Not on file Non-medical: Not on file Tobacco Use Smoking status: Current Every Day Smoker Packs/day: 1.00 Years: 43.00 Pack years: 43.00 Types: Cigarettes Smokeless tobacco: Never Used Substance and Sexual Activity Alcohol use: Never Frequency: Never Drug use: Never Sexual activity: Not on file Lifestyle Physical activity: Days per week: Not on file Minutes per session: Not on file Stress: Not on file Relationships Social connections: Talks on phone: Not on file Gets together: Not on file Attends jehovah's witness service: Not on file Active member of club or organization: Not on file Attends meetings of clubs or organizations: Not on file Relationship status: Not on file Intimate partner violence: Fear of current or ex partner: Not on file Emotionally abused: Not on file Physically abused: Not on file Forced sexual activity: Not on file Other Topics Concern Not on file Social History Narrative Lives at home with partner Jeff Family History Problem Relation Age of Onset Diabetes Mother Heart Mother Diabetes Father Heart Father Review of Systems Constitutional: Positive for fatigue. Negative for activity change, appetite change, chills, diaphoresis and fever. HENT: Positive for congestion, rhinorrhea, sinus pain, sneezing and sore throat. Negative for ear pain, postnasal drip, sinus pressure, trouble swallowing and voice change. Eyes: Negative for pain, discharge, redness and itching. Respiratory: Positive for cough. Negative for chest tightness, shortness of breath and wheezing. Cardiovascular: Negative for chest pain, palpitations and leg swelling. Gastrointestinal: Negative for abdominal pain, constipation, diarrhea, nausea and vomiting. Stool is a little more loose occasionally. not black or bloody Musculoskeletal: Positive for arthralgias. Negative for myalgias, neck pain and neck stiffness. Skin: Negative for color change and rash. Neurological: Negative for dizziness, syncope, weakness, light-headedness, numbness and headaches. Vital Signs BP 109/74 (BP Location: Left arm, Patient Position: Sitting, BP CUFF SIZE: Adult Medium) | Pulse 58 | Temp 36.7 C (98 F) (Oral) | Resp 19 | Ht 5' 3" (1.6 m) | Wt 134 lb (60.8 kg) | SpO2 97% | BMI 23.74 kg/m Physical Exam Constitutional: She is oriented to person, place, and time. She appears well- developed and well-nourished. No distress. HENT: Head: Normocephalic and atraumatic. Right Ear: Tympanic membrane, external ear and ear canal normal. Left Ear: Tympanic membrane, external ear and ear canal normal. Nose: Mucosal edema and rhinorrhea present. Mouth/Throat: Uvula is midline, oropharynx is clear and moist and mucous membranes are normal. No oropharyngeal exudate, posterior oropharyngeal edema, posterior oropharyngeal erythema or tonsillar abscesses. Tonsils are 0 on the right. Tonsils are 0 on the left. No tonsillar exudate. Eyes: Conjunctivae are normal. Neck: Normal range of motion. Neck supple. Cardiovascular: Normal rate, regular rhythm and normal heart sounds. Pulmonary/Chest: Effort normal and breath sounds normal. No stridor. No respiratory distress. She has no wheezes. She has no rales. Abdominal: Soft. Bowel sounds are normal. She exhibits no distension. There is no tenderness. There is no rebound and no guarding. Musculoskeletal: Normal range of motion. She exhibits no edema. Lymphadenopathy: She has no cervical adenopathy. Neurological: She is alert and oriented to person, place, and time. Skin: Skin is warm and dry. No rash noted. She is not diaphoretic. Psychiatric: She has a normal mood and affect. Her behavior is normal. Nursing note and vitals reviewed. Assessment/Plan Acute URI (primary encounter diagnosis) Cough Plan: CORONAVIRUS COVID-19 TESTING, CORONAVIRUS COVID-19 TESTING, azithromycin 250 mg tablet, benzonatate (TESSALON PERLES) 100 mg capsule Afebrile, well appearing, non-toxic, NAD. HR < 100, lungs CTAB. No rales. O2 sat 97%. COVID-19 testing ordered. Given duration of symptoms concern for bacterial URI. Will start on zpack given patient allergies. Take full course as directed with food. Educated on potential drug interaction with citalopram. Patient reports taking zpack in the past without issue. ED precautions given. Advised to holdzofran while taking zpack. Patient reports understanding and agrees. Educated on the following at home care: -Increase water intake -Take over the counter vitamin C -Take Tylenol as needed, avoid nsaids -Take tessalon as needed for cough -REST -Wash hands often -Cover mouth when coughing -Wear mask with in the same room/car as others -Gargle with warm salt water as needed -Drink warm liquids as needed. -Throat lozenges as needed -Quarantine until your COVID results are back -Stay in your own bedroom and use a separate bathroom -Keep at least 6 feet from you and others -Avoid sharing personal household items, dishes, glasses, cups, towels -Clean high traffic/touch areas daily. These include but not limited to: doorknobs, refrigerator/cabinet handles, phones, keyboards, tablets, light switches. -Monitor your symptoms. Take your temperature 2 times daily. -Follow-up with PCP as needed, if no improvement. -Monitor your symptoms. Go to the ED if worsening symptoms: chest pain, difficulty breathing, coughing up blood, weakness, dizziness, passing out, AMS. Pt ed/precautions given in detail regarding conditions/medicaitons. Er precautions given. Pt reportsunderstanding and agrees. rtc if s/s worsen or do not improve ; Plan of care, desired health behaviors, goals, Ddx, & any prescribed or OTC medications discussed with patient. Education resources & self management tools provided and reviewed with AVS. Patient/guardian/family verbalized understanding & agrees to plan of care. Barriers to care: NONE Ability to manage care: Good This visit did not involve counseling and coordination that comprised more than 50% of the visit time. documented in this encounter Plan of Treatment Health Maintenance Due Date Last Done Comments HEPATITIS C (HCV) SCREEN 1965 PNEUMOCOCCAL 0-64 YEARS COMBINED SERIES (1 of 1 - 1971 PPSV23) DTaP,Tdap,and Td Vaccines (1 - Tdap) 1976 PAP SMEAR 1986 Breast Cancer Screening (MAMMOGRAM) 2005 COLONOSCOPY 2015 Zoster Recombinant Vaccine (SHINGRIX) (1 of 2) 2015 INFLUENZA VACCINE (#1) 2019 documented as of this encounter Procedures Procedure Name Priority Date/Time Associated Comments Diagnosis CORONAVIRUS COVID-19 Routine 01/17/2020 11:21 Cough Results for this TESTING AM CDT Acute URI procedure are i n the results section. documented in this encounter Results CORONAVIRUS COVID-19 TESTING (01/17/2020 11:21 AM CDT) Pathologist Sig nature SARS-CoV-2 Not Detected Not Detected [facility] Specimen Swab - NASOPHARYNGEAL SWAB Narrative Performed At [employer] SARS-CoV-2 kit is used for this assay. It is [facility] a real-time (rt) reverse transcriptase (RT) polymerase chain reaction (PCR) test intended for the qualitative detec tion of nucleic acid from the SARS-CoV-2 in nasopharyngeal (GRINDING MACHINE TENDER) and oropharyngeal (OP) swabs. It is used under Emergen cy Use Authorization (EUA) by FDA. The limit of detection (LO D) of the assay is 100 virus copies/mL. False positive resul ts may occur. A negative result does not rule out the prese nce of PCR inhibitors in the patient specimen or SARS-CoV-2 v irus RNA concentrations below the limit of detection by the assay. Test results should not be used as the sole bas is for patient management decisions. Performing Organization Address City/State/Zipcode Phone Number [facility] CLIA: [id number], [address] [place] [address] [address] [facility] documented in this encounter Visit Diagnoses Diagnosis Acute URI - Primary Acute upper respiratory infections of un specified site Cough documented in this encounter Insurance Payer Benefit Plan / Subscriber ID Effective Phone Address T ype Group Dates [facility] [id number] 2020-Prese Medic are Adv HEALTHCARE - HEALTHCARE DUAL nt H [place] MANAGED COMPLETE O MEDICARE documented as of this encounter
--- NOTE | 2020-02-11 20:35 | RAD REPORT ---
EXAM DESCRIPTION: RAD - Elbow Right 3 View - 02/11/2020 8:15 pm CLINICAL HISTORY: Right elbow pain status post injury FINDINGS: No fracture or dislocation is seen. A radiopaque foreign body is not visualized
[2020-02-11] MEDS ORDERED: LIDOCAINE 1% MPF 5 ML VIAL ONE (20:45)
[2020-02-11] MEDS ORDERED: DERMABOND SKIN ADHESIVE TOP ONE (21:32)
--- NOTE | 2020-02-11 21:55 | EDPHYS ---
Physician Documentation [facility] Name: Blanca King Age: 54 yrs Sex: Female : 1965 Arrival Date: 02/11/2020 Time: 18:27 Bed 16 Private MD: ED Physician Pierre Dixon HPI: 02/10 19:56 This 54 yrs old Female presents to ER via Wheelchair with complaints of pm1 Laceration To Arm. 19:56 The patient has a laceration occurred at home, and there are no complicating factors. pm1 The injury was accidental. The laceration(s) is(are) located on the left elbow. Onset: The symptoms/episode began/occurred just prior to arrival. Associated signs and symptoms: The patient has no apparent associated signs or symptoms, Pertinent negatives: deformity, numbness distal to injury, suspected foreign body. The patient has not experienced similar symptoms in the past. The patient has not recently seen a physician. Patient was making coffee and then stepped backwards and tripped on packaged bottle jose behind her. Patient's left elbow broke through the glass on the coffee table. No headache, head injury, LOC, neck pain. Historical: - Allergies: 18:34 ambien; iw 18:34 Latex, Natural Rubber; iw 18:34 Lisinopril; iw 18:34 Losartan; iw 18:34 Lunesta; iw 18:34 PENICILLINS; iw 18:34 Sulfa (Sulfonamide Antibiotics); iw 18:34 Ultram; iw 18:34 Wellbutrin; iw 18:34 Zyban; iw - Home Meds: 18:34 amlodipine 10 mg tab 1 tab once daily [Active]; carvedilol 12.5 mg Oral tab 2 times per iw day [Active]; citalopram 40 mg tab once daily [Active]; clonidine HCl 0.3 mg Oral tab daily [Active]; clopidogrel 75 mg Oral tab 1 tab once daily [Active]; folic acid 400 mcg Oral tab once daily [Active]; hydrocodone-acetaminophen 10-325 mg Oral tab every 4 hours for Pain [Active]; levothyroxine 88 mcg tab once daily [Active]; lorazepam 1 mg Oral tab 3 times per day [Active]; metformin 500 mg Oral tab 2 times per day [Active]; mirtazapine 45 mg Oral tab once daily [Active]; montelukast 10 mg Oral tab 1 tab once daily [Active]; Nitrostat 0.4 mg SL subl [Active]; omeprazole 40 mg Oral cpDR once daily [Active]; ondansetron HCl 4 mg Oral tab every 6 hrs [Active]; potassium chloride 20 mEq Oral TbTQ 1 tab once daily [Active]; rosuvastatin 20 mg Oral tab once daily [Active]; Symbicort 80-4.5 mcg/actuation inhalation HFAA 2 puffs 2 times per day [Active]; tizanidine 4 mg Oral tab every 8 hours [Active]; valacyclovir 500 mg Oral tab once daily [Active]; Zetia 10 mg Oral tab 1 tab once daily [Active]; - PMHx: 18:34 acid reflux; CVA; Diabetes - NIDDM; heart arrhythmia; Hypertension; psoriasis; Thyroid iw problem; - PSHx: 18:34 C5 C6 fusion; Hysterectomy; iw - Immunization history:: Last tetanus immunization: up to date. - Social history:: Smoking status: . ROS: 19:56 Constitutional: Negative for fever, chills, and weight loss, Cardiovascular: Negative pm1 for chest pain, palpitations, and edema, Respiratory: Negative for shortness of breath, cough, wheezing, and pleuritic chest pain, Abdomen/GI: Negative for abdominal pain, nausea, vomiting, diarrhea, and constipation, Back: Negative for injury and pain. 19:56 Neuro: Negative for headache, weakness, numbness, tingling, and seizure. 19:56 MS/extremity: Positive for abrasion, laceration, of the left elbow, Negative for decreased range of motion, deformity, paresthesias. 19:56 Skin: Positive for abrasion(s), laceration(s), of the left elbow. Exam: 19:56 Constitutional: This is a well developed, well nourished patient who is awake, alert, pm1 and in no acute distress. Head/Face: Normocephalic, atraumatic. Neck: Trachea midline, no thyromegaly or masses palpated, and no cervical lymphadenopathy. Supple, full range of motion without nuchal rigidity, or vertebral point tenderness. No Meningismus. Chest/axilla: Normal chest wall appearance and motion. Nontender with no deformity. No lesions are appreciated. 19:56 Abdomen/GI: Soft, non-tender, with normal bowel sounds. No distension or tympany. No guarding or rebound. No evidence of tenderness throughout. Back: No spinal tenderness. No costovertebral tenderness. Full range of motion. 19:56 Cardiovascular: Exam negative for acute changes, Rate: normal, Rhythm: regular, Pulses: no pulse deficits are appreciated, Heart sounds: normal, Edema: is not appreciated. 19:56 Respiratory: Exam negative for acute changes, respiratory distress, shortness of breath, wheezing. 19:56 Musculoskeletal/extremity: Extremities: grossly normal except: noted in the left elbow: abrasion, laceration, There is no evidence of decreased ROM, deformity. 19:56 Skin: Appearance: normal except for affected area, injury, abrasion(s), small abrasion noted, of the left elbow, laceration(s), the wound is approximately 10 cm(s), of the left elbow. 19:56 Neuro: Exam negative for acute changes, Orientation: is normal, Motor: is normal, moves all fours, Sensation: is normal, no obvious gross deficits. Vital Signs: 18:30 BP 102 / 60; Pulse 59; Resp 16; Temp 98.0; Pulse Ox 98% on R/A; Weight 58.97 kg; Height iw 5 ft. 3 in. (160.02 cm); 21:00 BP 113 / 70; Pulse 60; Resp 14; Temp 97.9; Pulse Ox 99% on R/A; Pain 3/10; ls4 22:01 BP 111 / 51; Pulse 61; Resp 14; Pulse Ox 99% on R/A; Pain 3/10; ls4 18:30 Body Mass Index 23.03 (58.97 kg, 160.02 cm) iw Laceration: 21:49 Wound Repair of 3cm ( 1.2in ) subcutaneous laceration to left elbow. skin tear. Distal pm1 neuro/vascular/tendon intact. Wound prep: Extensive cleansing with hibiclenz by me, Wound irrigation with saline by me, Wound explored extensively, Copious irrigation. Skin closed with 1-0 Adhesive skin closure using Dermabond. Patient tolerated well. 21:49 Wound Repair of 10cm ( 3.9in ) subcutaneous laceration to left elbow. Irregularly pm1 shaped.. Distal neuro/vascular/tendon intact. Anesthesia: Local anesthetic administered with 5 mls of 1% lidocaine. Wound prep: Extensive cleansing with hibiclenz by me, Wound irrigation with saline by me, Wound explored extensively, Copious irrigation. Skin closed with 12 4-0 Prolene using simple sutures and sterile technique. Dressed with 4x4's, Kerlix. Patient tolerated well. MDM: 19:39 Patient medically screened. [facility] 21:52 Data reviewed: vital signs. Data interpreted: Pulse oximetry: on room air is 98 %. pm1 Interpretation: normal. Counseling: I had a detailed discussion with the patient and/or guardian regarding: the historical points, exam findings, and any diagnostic results supporting the discharge/admit diagnosis, radiology results, the need for outpatient follow up, to return to the emergency department if symptoms worsen or persist or if there are any questions or concerns that arise at home. 02/10 19:56 Order name: Elbow Right 3 View XRAY; Complete Time: 20:50 pm1 02/10 19:56 Order name: Prolene, Sutures; Complete Time: 20:43 pm1 02/10 19:56 Order name: Dressing - Wound; Complete Time: 20:44 pm1 02/10 19:56 Order name: Gloves, Sterile; Complete Time: 20:44 pm1 02/10 19:56 Order name: Setup Suture Tray; Complete Time: 20:44 pm1 02/10 21:55 Order name: Sling; Complete Time: 22:00 pm1 Administered Medications: 21:34 Drug: Lidocaine (1 %) 5 ml Volume: 5 ml; Route: Infiltration; ls4 22:01 Follow up: Response: No adverse reaction ls4 Disposition: 02/11 09:04 Co-signature as Attending Physician, Pierre Dixon MD I agree with the assessment and [facility] plan of care. Disposition: 02/11/20 21:54 Discharged to Home. Impression: Laceration without foreign body of left elbow, Abrasion of left elbow. - Condition is Stable. - Discharge Instructions: Laceration Care, Adult. - Medication Reconciliation Form, Thank You Letter, Antibiotic Education, Prescription Opioid Use form. - Follow up: Emergency Department; When: As needed; Reason: Worsening of condition. Follow up: Private Physician; When: 10 - 14 days; Reason: Recheck today's complaints, Continuance of care, Staple/Suture removal, Re-evaluation by your physician. - Problem is new. - Symptoms have improved. Signatures: Dispatcher [employer] EDPierre Madden MD MD cha Williams, Irene, RN RN Sridhar Talavera NP [employer] pm1 Tawnya Renae, ELA RN ls4 Corrections: (The following items were deleted from the chart) 02/10 22:33 21:54 02/11/2020 21:54 Discharged to Home. Impression: Laceration without foreign body ls4 of left elbow; Abrasion of left elbow. Condition is Stable. Forms are Medication Reconciliation Form, Thank You Letter, Antibiotic Education, Prescription Opioid Use. Follow up: Emergency Department; When: As needed; Reason: Worsening of condition. Follow up: Private Physician; When: 10 - 14 days; Reason: Recheck today's complaints, Continuance of care, Staple/Suture removal, Re-evaluation by your physician. Problem is new. Symptoms have improved. pm1
--- NOTE | 2020-02-11 21:55 | ER ---
Nurse's Notes [facility] Name: Blanca King Age: 54 yrs Sex: Female : 1965 Arrival Date: 02/11/2020 Time: 18:27 Bed 16 Private MD: Diagnosis: Laceration without foreign body of left elbow;Abrasion of left elbow Presentation: 02/10 18:30 Chief complaint: Patient states: was making coffee, tripped over a case of water, fell iw back and right elbow went into glass window, laceration to back of right upper arm, on plavix, bleeding controlled. Coronavirus screen: Proceed with normal triage. Patient denies a cough. Patient denies shortness of breath or difficulty breathing. Patient denies measured and/or subjective temperature greater than 100.4F prior to today's visit. Patient denies travel on a cruise ship or to a country the [facility] currently lists as an affected area. Patient denies contact with known and/or suspected case of COVID-19. Ebola Screen: Patient negative for fever greater than or equal to 101.5 degrees Fahrenheit, and additional compatible Ebola Virus Disease symptoms Patient denies exposure to infectious person. Patient denies travel to an Ebola-affected area in the 21 days before illness onset. No symptoms or risks identified at this time. Complicating Factors: There are no complicating factors for this patient. Initial Sepsis Screen: Does the patient meet any 2 criteria? No. Patient's initial sepsis screen is negative. Does the patient have a suspected source of infection? No. Patient's initial sepsis screen is negative. Risk Assessment: Do you want to hurt yourself or someone else? Patient reports no desire to harm self or others. Onset of symptoms was February 11, 2020. 18:30 Method Of Arrival: Wheelchair iw 18:30 Acuity: CY 4 iw Triage Assessment: 19:30 General: Appears in no apparent distress. comfortable, Behavior is calm, cooperative. ls4 Pain: Pain currently is 3 out of 10 on a pain scale. Injury Description: Laceration sustained to left arm and left elbow is jagged, > 20 cm long, 4 lacerations on left elbow caused by falling into glass see nonprofit manager note for details. 19:30 Neuro: No deficits noted. Cardiovascular: No deficits noted. Respiratory: No deficits ls4 noted. GI: No deficits noted. : No deficits noted. Derm: No deficits noted. Musculoskeletal: No deficits noted. Historical: - Allergies: 18:34 ambien; iw 18:34 Latex, Natural Rubber; iw 18:34 Lisinopril; iw 18:34 Losartan; iw 18:34 Lunesta; iw 18:34 PENICILLINS; iw 18:34 Sulfa (Sulfonamide Antibiotics); iw 18:34 Ultram; iw 18:34 Wellbutrin; iw 18:34 Zyban; iw - Home Meds: 18:34 amlodipine 10 mg tab 1 tab once daily [Active]; carvedilol 12.5 mg Oral tab 2 times per iw day [Active]; citalopram 40 mg tab once daily [Active]; clonidine HCl 0.3 mg Oral tab daily [Active]; clopidogrel 75 mg Oral tab 1 tab once daily [Active]; folic acid 400 mcg Oral tab once daily [Active]; hydrocodone-acetaminophen 10-325 mg Oral tab every 4 hours for Pain [Active]; levothyroxine 88 mcg tab once daily [Active]; lorazepam 1 mg Oral tab 3 times per day [Active]; metformin 500 mg Oral tab 2 times per day [Active]; mirtazapine 45 mg Oral tab once daily [Active]; montelukast 10 mg Oral tab 1 tab once daily [Active]; Nitrostat 0.4 mg SL subl [Active]; omeprazole 40 mg Oral cpDR once daily [Active]; ondansetron HCl 4 mg Oral tab every 6 hrs [Active]; potassium chloride 20 mEq Oral TbTQ 1 tab once daily [Active]; rosuvastatin 20 mg Oral tab once daily [Active]; Symbicort 80-4.5 mcg/actuation inhalation HFAA 2 puffs 2 times per day [Active]; tizanidine 4 mg Oral tab every 8 hours [Active]; valacyclovir 500 mg Oral tab once daily [Active]; Zetia 10 mg Oral tab 1 tab once daily [Active]; - PMHx: 18:34 acid reflux; CVA; Diabetes - NIDDM; heart arrhythmia; Hypertension; psoriasis; Thyroid iw problem; - PSHx: 18:34 C5 C6 fusion; Hysterectomy; iw - Immunization history:: Last tetanus immunization: up to date. - Social history:: Smoking status: . Screenin:30 Abuse screen: Denies threats or abuse. Denies injuries from another. Nutritional ls4 screening: No deficits noted. Tuberculosis screening: No symptoms or risk factors identified. Fall Risk None identified. Assessment: 19:30 Musculoskeletal: Circulation, motion, and sensation intact. Capillary refill < 3 ls4 seconds, Range of motion: intact in all extremities. Injury Description: Laceration is 7.6 to 20 cm long, is bleeding a dressing was applied. Vital Signs: 18:30 BP 102 / 60; Pulse 59; Resp 16; Temp 98.0; Pulse Ox 98% on R/A; Weight 58.97 kg; Height iw 5 ft. 3 in. (160.02 cm); 21:00 BP 113 / 70; Pulse 60; Resp 14; Temp 97.9; Pulse Ox 99% on R/A; Pain 3/10; ls4 22:01 BP 111 / 51; Pulse 61; Resp 14; Pulse Ox 99% on R/A; Pain 3/10; ls4 18:30 Body Mass Index 23.03 (58.97 kg, 160.02 cm) iw ED Course: 18:27 Patient arrived in ED. am2 18:32 Triage completed. iw 19:30 Arm band placed on. ls4 19:36 Sridhar Michel NP is PHCP. pm1 19:37 Pierre Dixon MD is Attending Physician. pm1 20:10 Assist provider with laceration repair on left elbow and left arm that was between 20.1 ls4 to 30.0 cm using sutures. Set up tray. Performed by Sridhar Michel [employer]ARM GENERAL MANAGER Dressed with Patient tolerated well. 20:10 Patient did not have IV access during this emergency room visit. ls4 20:16 Elbow Right 3 View XRAY In Process Unspecified. EDMS 20:29 Tawnya Renae, ELA is Primary Nurse. ls4 22:10 Dressings: Eva 4X4s X 2; left arm and left elbow. ls4 Administered Medications: 21:34 Drug: Lidocaine (1 %) 5 ml Volume: 5 ml; Route: Infiltration; ls4 22:01 Follow up: Response: No adverse reaction ls4 Outcome: 21:54 Discharge ordered by . pm1 22:01 Discharged to home ambulatory. ls4 22:01 Condition: good 22:01 Discharge instructions given to patient, family, Instructed on discharge instructions, follow up and referral plans. medication usage, wound care, Demonstrated understanding of instructions, follow-up care, medications. 22:33 Patient left the ED. ls4 Signatures: Dispatcher [employer] Meli Schumacher RN RN iw Marinas, Patrick, NP [employer]ARM [employer]AL MANAGER pm1 Marlena Del Rosario am2 aTwnya Renae RN RN ls4 Corrections: (The following items were deleted from the chart) 23:11 23:07 General: Appears in no apparent distress. comfortable, Behavior is calm, ls4 cooperative, ls4 23:11 23:07 Pain: Pain currently is 3 out of 10 on a pain scale. ls4 ls4 23:11 23:07 Injury Description: Laceration sustained to left arm and left elbow is jagged, > ls4 20 cm long, 4 lacerations on left elbow caused by falling into glass see nonprofit manager note for details. ls4 23:14 23:13 Dressings: Eva 4X4s X 2; left arm and left elbow ls4 ls4 23:17 23:15 Injury Description: Laceration is 7.6 to 20 cm long, is bleeding a dressing was ls4 applied ls4 23:17 23:15 Musculoskeletal: Circulation, motion, and sensation intact. Capillary refill < 3 ls4 seconds, Range of motion: intact in all extremities, ls4
[2020-02-11 22:40] VITALS: TEMP 98
[2020-02-11 22:41] VITALS: BP 111/51; O2SAT 99
== END 2020-02-11 22:33 | disposition home or self-care (01) ==
LOC: ER 18:25
PROC: 0JQH0ZZ Repair Left Lower Arm Subcutaneous Tissue and Fascia, Open Approach (ICD-10-PCS; principal; 2020-02-11)
DX: S51.012A Laceration without foreign body of left elbow, initial encounter (principal); W01.198A Fall on same level from slipping, tripping and stumbling with subsequent striking against other object, initial encounter; Y93.89 Activity, other specified; Y92.009 Unspecified place in unspecified non-institutional (private) residence as the place of occurrence of the external cause; Z88.0 Allergy status to penicillin; Z88.2 Allergy status to sulfonamides; Z88.5 Allergy status to narcotic agent; Z88.8 Allergy status to other drugs, medicaments and biological substances; Z91.040 Latex allergy status; I10 Essential (primary) hypertension; E11.9 Type 2 diabetes mellitus without complications; E07.9 Disorder of thyroid, unspecified
CPT/HCPCS: 99284